=== PATIENT | female | born 1945 | race African-American/Black ===

== ENCOUNTER 2018-09-26 15:23 | Emergency (ER) | payer MEDICARE, MEDICAID ==
[~2018-09-26] VITALS: Ht 167.6 cm; Wt 95.0 kg
[2018-09-26] MEDS ORDERED: SODIUM CHLORIDE 0.9% 500 ML IV ONE (15:50)
[2018-09-26 16:38] LABS: BASOPHILS % 0.3 % (0.0-2.0); HEMATOCRIT. 31.1 % (36.0-48.0); HEMOGLOBIN. 10.6 g/dL (12.0-16.0); LYMPHOCYTES % 20.5 % (20.0-50.0); MEAN CORPUSCULAR HEMOGLOBIN 30.9 pg (28.0-32.0); MEAN CORPUSCULAR VOLUME 90.7 fL (81.0-99.0); MEAN PLATELET VOLUME 8.6 fl (7.4-10.4); NEUTROPHILS % 70.2 % (40.0-76.0); PLATELET 239 x1000/uL (130-400); RED BLOOD CELL COUNT 3.43 mill/uL (4.2-5.4); RED CELL DISTRIBUTION WIDTH 17.1 % (11.6-14.6)
[2018-09-26 16:39] LABS: CHLORIDE 90 mEq/L (98-107)
[2018-09-26 16:43] LABS: PARTIAL THROMBOPLASTIN TIME 27.4 sec (23.4-31.0); PROTHROMBIN TIME 10.3 sec (9.1-11.1)
[2018-09-26 16:45] LABS: ETHANOL BLOOD < 10 mg/dL
[2018-09-26 17:30] LABS: CLARITY URINE CLEAR (CLEAR); COLOR URINE YELLOW (YELLOW); KETONES URINE NEGATIVE (NEGATIVE); LEUKOCYTE ESTERASE URINE 1+ (NEGATIVE); NITRITE URINE NEGATIVE (NEGATIVE); OCCULT BLOOD URINE NEGATIVE (NEGATIVE); PH URINE 7.5 (4.5-8.0); PROTEIN URINE NEGATIVE (NEGATIVE); SPECIFIC GRAVITY URINE 1.004 (1.005-1.030); UROBILINOGEN URINE 0.2 E.U./dL (0.2-1.0)
[2018-09-26 18:00] LABS: *AMPHETAMINES SCREEN URINE NEGATIVE (NEGATIVE); *BARBITURATES SCREEN URINE NEGATIVE (NEGATIVE); *BENZODIAZEPINES SCREEN URINE NEGATIVE (NEGATIVE); *COCAINE SCREEN URINE NEGATIVE (NEGATIVE)
[2018-09-26 18:01] LABS: CANNABINOID URINE SCREEN NEGATIVE (NEGATIVE); METHADONE URINE SCREEN NEGATIVE (NEGATIVE); OPIATES URINE SCREEN NEGATIVE (NEGATIVE); PHENCYCLIDINE URINE SCREEN NEGATIVE (NEGATIVE)
[2018-09-26] MEDS ORDERED: NITROFURANTOIN 100MG M/M CAPSULE PO ONE (19:45)
[2018-09-26] MEDS ORDERED: POTASSIUM CHLORIDE 20MEQ TABLET SR PO ONE (20:15)
[2018-09-26 20:51] VITALS: BP 143/65
== END 2018-09-26 20:55 | disposition home or self-care (01) ==
LOC: ER 15:59
DX: N39.0 Urinary tract infection, site not specified (principal); E87.8 Other disorders of electrolyte and fluid balance, not elsewhere classified; F31.9 Bipolar disorder, unspecified; J44.9 Chronic obstructive pulmonary disease, unspecified; I10 Essential (primary) hypertension; E11.9 Type 2 diabetes mellitus without complications; R94.31 Abnormal electrocardiogram [ECG] [EKG]; M48.02 Spinal stenosis, cervical region; Z91.81 History of falling; Z88.0 Allergy status to penicillin; Z88.5 Allergy status to narcotic agent; Z88.2 Allergy status to sulfonamides
CPT/HCPCS: 36415; 70450; 71045; 72125; 72170; 80053; 80305; 81003; 82962; 83690; 83735; 83880; 84484; 85025; 85610; 85730; 87077; 87086; 87186; 93005; 99284; G0482; J7040

== ENCOUNTER 2018-09-29 01:46 | Inpatient (IN) | payer MEDICARE, MEDICAID ==
[~2018-09-29] VITALS: Ht 152.4 cm; Wt 90.1 kg
[2018-09-29] MEDS ORDERED: SODIUM CHLORIDE 0.9% 1,000 ML IV ONE (03:48)
[2018-09-29 05:10] LABS: BASOPHILS % 0.2 % (0.0-2.0); EOSINOPHILS % 1.5 % (0.0-5.0); HEMATOCRIT. 34.4 % (36.0-48.0); HEMOGLOBIN. 11.4 g/dL (12.0-16.0); LYMPHOCYTES % 11.8 % (20.0-50.0); MEAN CORPUSCULAR HEMOGLOBIN 30.3 pg (28.0-32.0); MEAN CORPUSCULAR VOLUME 91.7 fL (81.0-99.0); MEAN PLATELET VOLUME 8.5 fl (7.4-10.4); MONOCYTES % 7.3 % (2.0-8.0); NEUTROPHILS % 79.2 % (40.0-76.0); PLATELET 223 x1000/uL (130-400); RED BLOOD CELL COUNT 3.76 mill/uL (4.2-5.4); RED CELL DISTRIBUTION WIDTH 17.9 % (11.6-14.6)
[2018-09-29 05:18] LABS: CHLORIDE 95 mEq/L (98-107)
[2018-09-29 05:21] LABS: ETHANOL BLOOD < 10 mg/dL
[2018-09-29] MEDS ORDERED: CEFTRIAXONE 1 G PREMIX 50 ML IV ONE (05:45)
[2018-09-29] MEDS ORDERED: POTASSIUM CHLORIDE 20MEQ TABLET SR PO ONE (06:00)
[2018-09-29 07:23] LABS: CLARITY URINE CLOUDY (CLEAR); COLOR URINE YELLOW (YELLOW); KETONES URINE NEGATIVE (NEGATIVE); LEUKOCYTE ESTERASE URINE 3+ (NEGATIVE); NITRITE URINE NEGATIVE (NEGATIVE); OCCULT BLOOD URINE TRACE (NEGATIVE); PH URINE 7.5 (4.5-8.0); PROTEIN URINE NEGATIVE (NEGATIVE); SPECIFIC GRAVITY URINE 1.003 (1.005-1.030); UROBILINOGEN URINE 0.2 E.U./dL (0.2-1.0)
[2018-09-29 07:55] LABS: *AMPHETAMINES SCREEN URINE NEGATIVE (NEGATIVE); *BARBITURATES SCREEN URINE NEGATIVE (NEGATIVE); *BENZODIAZEPINES SCREEN URINE NEGATIVE (NEGATIVE); *COCAINE SCREEN URINE NEGATIVE (NEGATIVE); METHADONE URINE SCREEN NEGATIVE (NEGATIVE); OPIATES URINE SCREEN NEGATIVE (NEGATIVE)
[2018-09-29 07:56] LABS: CANNABINOID URINE SCREEN NEGATIVE (NEGATIVE); PHENCYCLIDINE URINE SCREEN NEGATIVE (NEGATIVE)
[2018-09-29 08:20] VITALS: BP 111/64
[2018-09-29] MEDS ORDERED: LORAZEPAM 2MG/ML CPJ IV PRN (08:30)
[2018-09-29] MEDS ORDERED: DOCUSATE SODIUM 100MG CAPSULE PO PRN (08:30)
[2018-09-29] MEDS ORDERED: MAGNESIUM/ALUMINUM HYDROXIDE/SIMETHICONE 30ML UDC PO PRN (08:30)
[2018-09-29] MEDS ORDERED: GUAIFENESIN 200MG/10ML SUGAR FREE UDC PO PRN (08:30)
[2018-09-29] MEDS ORDERED: ONDANSETRON HCL 4MG/2ML INJ IV PRN (08:30)
[2018-09-29] MEDS ORDERED: CLONIDINE 0.1MG TABLET PO PRN (08:30)
[2018-09-29] MEDS ORDERED: IPRATROPIUM/ALBUTEROL 0.5-3(2.5)MG/3ML NEB INH PRN (08:30)
[2018-09-29] MEDS: ASPIRIN 81MG EC TABLET PO SCH ×2 (09:00→09:23)
[2018-09-29] MEDS: ENOXAPARIN 40MG/0.4ML SYR SUBCUT SCH (09:24)
[2018-09-29] MEDS: TRAMADOL 50MG TABLET PO PRN (10:00)
[2018-09-29] MEDS ORDERED: LEVOFLOXACIN 500MG PREMIX 100 ML IV SCH (10:00)
[2018-09-29] MEDS: SODIUM CHLORIDE 0.45% 1,000 ML IV SCH ×2 (10:37→21:38)
[2018-09-29] MEDS ORDERED: KETOROLAC 15MG/ML VIAL IV NR (11:30)
[2018-09-29 12:48] VITALS: BP 149/75
[2018-09-29] MEDS: SODIUM CHLORIDE 0.9% INJ 3ML FLUSH IVF SCH ×2 (14:06→22:11)
[2018-09-29] MEDS: DIPHENHYDRAMINE 50MG/ML VIAL IV PRN ×2 (15:34→22:11)
[2018-09-29] MEDS ORDERED: DEXTROSE 50% WATER 50ML SYRINGE IV PRN (15:45)
[2018-09-29] MEDS: INSULIN LISPRO 100 UNITS/ML SUBCUT SCH ×2 (16:53→21:00)
[2018-09-29] MEDS: BLOOD SUGAR DIAGNOSTIC STRIP TEST SCH ×2 (16:53→21:37)
[2018-09-29 20:00] VITALS: BP 155/55
[2018-09-29 21:11] LABS: CREATINE KINASE 280 IU/L (26-192)
[2018-09-29 21:13] LABS: CREATINE KINASE MB FRACTION 2.6 ng/mL (0.5-3.6)
[2018-09-29] MEDS ORDERED: ARIP30TA10 PO (21:58)
[2018-09-29] MEDS ORDERED: TOPI200T15 PO (21:58)
[2018-09-29] MEDS ORDERED: CARB200C4 PO (21:58)
[2018-09-29] MEDS: HALOPERIDOL LACTATE 5MG/ML VIAL IM PRN (22:11)
[2018-09-30] VITALS (7 sets, daily range): BP systolic 126–173; BP diastolic 45–79
[2018-09-30] MEDS ORDERED: EZET10TA26 PO (04:30)
[2018-09-30] MEDS ORDERED: NITR100C PO (04:30)
[2018-09-30] MEDS ORDERED: FAMO-135 PO (04:30)
[2018-09-30] MEDS ORDERED: B50 PO (04:30)
[2018-09-30] MEDS ORDERED: LOSA50TA20 (04:30)
[2018-09-30] MEDS ORDERED: CLOP75TA16 PO (04:30)
[2018-09-30] MEDS ORDERED: POTA20TA82 PO (04:30)
[2018-09-30] MEDS ORDERED: FURO-151 PO (04:30)
[2018-09-30] MEDS ORDERED: CLON-457 PO (04:30)
[2018-09-30] MEDS ORDERED: IBUP-2028 PO (04:30)
[2018-09-30] MEDS ORDERED: LEVO50TA PO (04:30)
[2018-09-30] MEDS: SODIUM CHLORIDE 0.9% INJ 3ML FLUSH IVF SCH ×3 (06:00→21:12)
[2018-09-30] MEDS: INSULIN LISPRO 100 UNITS/ML SUBCUT SCH ×4 (06:38→21:12)
[2018-09-30] MEDS: BLOOD SUGAR DIAGNOSTIC STRIP TEST SCH ×4 (06:38→21:12)
[2018-09-30 07:57] LABS: BASOPHILS % 0.2 % (0.0-2.0); EOSINOPHILS % 0.9 % (0.0-5.0); HEMATOCRIT. 33.3 % (36.0-48.0); HEMOGLOBIN. 11.1 g/dL (12.0-16.0); LYMPHOCYTES % 23.9 % (20.0-50.0); MEAN CORPUSCULAR HEMOGLOBIN 30.4 pg (28.0-32.0); MEAN CORPUSCULAR VOLUME 91.7 fL (81.0-99.0); MEAN PLATELET VOLUME 8.5 fl (7.4-10.4); MONOCYTES % 8.4 % (2.0-8.0); NEUTROPHILS % 66.6 % (40.0-76.0); PLATELET 236 x1000/uL (130-400); RED BLOOD CELL COUNT 3.63 mill/uL (4.2-5.4)
[2018-09-30 08:49] LABS: CHLORIDE 101 mEq/L (98-107)
[2018-09-30] MEDS ORDERED: ARIPIPRAZOLE PO SCH (09:00)
[2018-09-30] MEDS ORDERED: MEDICATION NOT ON FORMULARY EA (Topiramate 1 TAB) PO SCH (09:00)
[2018-09-30] MEDS ORDERED: CARBAMAZEPINE PO SCH (09:00)
[2018-09-30 09:08] LABS: CREATINE KINASE 573 IU/L (26-192)
[2018-09-30 09:09] LABS: T4 FREE 1.14 ng/dL (0.76-1.46)
[2018-09-30 09:12] LABS: CREATINE KINASE MB FRACTION 6.3 ng/mL (0.5-3.6)
[2018-09-30] MEDS: CARBAMAZEPINE 200MG TABLET PO SCH ×2 (10:05→16:22)
[2018-09-30] MEDS: LEVOFLOXACIN 250MG PREMIX 50 ML IV SCH (10:06)
[2018-09-30] MEDS: ARIPIPRAZOLE 10MG TABLET PO SCH (10:06)
[2018-09-30] MEDS: TOPIRAMATE 100MG TABLET PO SCH ×2 (10:06→16:22)
[2018-09-30] MEDS: ASPIRIN 81MG EC TABLET PO SCH (10:06)
[2018-09-30] MEDS: ENOXAPARIN 40MG/0.4ML SYR SUBCUT SCH (10:17)
[2018-09-30] MEDS: SODIUM CHLORIDE 0.45% 1,000 ML IV SCH ×2 (13:04→21:08)
[2018-09-30] MEDS: TRAMADOL 50MG TABLET PO PRN (13:12)
[2018-09-30] MEDS: ENOXAPARIN 30MG/0.3ML SYR SUBCUT SCH (21:09)
[2018-10-01] VITALS: BP 128/77
[2018-10-01 04:00] VITALS: BP 133/80
[2018-10-01 06:23] LABS: BASOPHILS % 0.2 % (0.0-2.0); EOSINOPHILS % 1.7 % (0.0-5.0); HEMATOCRIT. 32.2 % (36.0-48.0); HEMOGLOBIN. 10.7 g/dL (12.0-16.0); LYMPHOCYTES % 21.8 % (20.0-50.0); MEAN CORPUSCULAR HEMOGLOBIN 30.8 pg (28.0-32.0); MEAN CORPUSCULAR VOLUME 92.3 fL (81.0-99.0); MEAN PLATELET VOLUME 8.5 fl (7.4-10.4); MONOCYTES % 8.6 % (2.0-8.0); NEUTROPHILS % 67.7 % (40.0-76.0); PLATELET 211 x1000/uL (130-400); RED BLOOD CELL COUNT 3.49 mill/uL (4.2-5.4); RED CELL DISTRIBUTION WIDTH 18.2 % (11.6-14.6)
[2018-10-01] MEDS: SODIUM CHLORIDE 0.9% INJ 3ML FLUSH IVF SCH ×3 (06:37→21:49)
[2018-10-01 06:41] LABS: CHLORIDE 103 mEq/L (98-107)
[2018-10-01] MEDS: SODIUM CHLORIDE 0.45% 1,000 ML IV SCH ×2 (06:45→16:45)
[2018-10-01] MEDS: BLOOD SUGAR DIAGNOSTIC STRIP TEST SCH ×4 (06:46→21:41)
[2018-10-01] MEDS: INSULIN LISPRO 100 UNITS/ML SUBCUT SCH ×4 (06:48→21:49)
[2018-10-01 06:52] LABS: CREATINE KINASE 253 IU/L (26-192)
[2018-10-01 06:53] LABS: CREATINE KINASE MB FRACTION 2.9 ng/mL (0.5-3.6)
[2018-10-01 08:00] VITALS: BP 124/43
[2018-10-01] MEDS: ARIPIPRAZOLE 10MG TABLET PO SCH (09:22)
[2018-10-01] MEDS: CARBAMAZEPINE 200MG TABLET PO SCH ×2 (09:22→17:31)
[2018-10-01] MEDS: TOPIRAMATE 100MG TABLET PO SCH ×2 (09:23→17:31)
[2018-10-01] MEDS: LEVOFLOXACIN 250MG PREMIX 50 ML IV SCH (09:23)
[2018-10-01] MEDS: ASPIRIN 81MG EC TABLET PO SCH (09:23)
[2018-10-01] MEDS: ENOXAPARIN 30MG/0.3ML SYR SUBCUT SCH ×2 (09:23→21:48)
[2018-10-01 12:00] VITALS: BP 127/67
[2018-10-01 16:50] VITALS: BP 173/83
[2018-10-01 20:00] VITALS: BP 156/54
[2018-10-01] MEDS: DIPHENHYDRAMINE 50MG/ML VIAL IV PRN (23:15)
[2018-10-01] MEDS: HALOPERIDOL LACTATE 5MG/ML VIAL IM PRN (23:15)
[2018-10-02] VITALS: BP 149/69
[2018-10-02] MEDS: SODIUM CHLORIDE 0.45% 1,000 ML IV SCH ×2 (02:45→11:33)
[2018-10-02 04:00] VITALS: BP 138/67
[2018-10-02] MEDS: INSULIN LISPRO 100 UNITS/ML SUBCUT SCH ×4 (06:02→21:04)
[2018-10-02] MEDS: BLOOD SUGAR DIAGNOSTIC STRIP TEST SCH ×4 (06:02→21:04)
[2018-10-02] MEDS: TRAMADOL 50MG TABLET PO PRN (06:03)
[2018-10-02] MEDS: SODIUM CHLORIDE 0.9% INJ 3ML FLUSH IVF SCH ×3 (06:03→22:00)
[2018-10-02 08:00] VITALS: BP 160/71
[2018-10-02] MEDS: CARBAMAZEPINE 200MG TABLET PO SCH ×2 (08:25→16:42)
[2018-10-02] MEDS: ARIPIPRAZOLE 10MG TABLET PO SCH (08:25)
[2018-10-02] MEDS: TOPIRAMATE 100MG TABLET PO SCH ×2 (08:26→16:42)
[2018-10-02] MEDS: LEVOFLOXACIN 250MG PREMIX 50 ML IV SCH (08:27)
[2018-10-02] MEDS: ASPIRIN 81MG EC TABLET PO SCH (08:27)
[2018-10-02] MEDS: ENOXAPARIN 30MG/0.3ML SYR SUBCUT SCH ×2 (08:28→21:03)
[2018-10-02] MEDS: ACETAMINOPHEN 325MG TABLET PO PRN ×2 (08:29→16:44)
[2018-10-02 12:19] VITALS: BP 142/78
[2018-10-02 16:00] VITALS: BP 146/83
[2018-10-02 20:00] VITALS: BP 147/55
[2018-10-03] VITALS: BP 155/52
[2018-10-03 04:00] VITALS: BP 196/71
[2018-10-03] MEDS: SODIUM CHLORIDE 0.9% INJ 3ML FLUSH IVF SCH ×2 (06:00→13:44)
[2018-10-03] MEDS: BLOOD SUGAR DIAGNOSTIC STRIP TEST SCH ×2 (06:17→11:47)
[2018-10-03] MEDS: INSULIN LISPRO 100 UNITS/ML SUBCUT SCH ×2 (06:25→11:47)
[2018-10-03 08:21] VITALS: BP 134/62
[2018-10-03] MEDS: ENOXAPARIN 30MG/0.3ML SYR SUBCUT SCH (08:52)
[2018-10-03] MEDS: ACETAMINOPHEN 325MG TABLET PO PRN (08:53)
[2018-10-03] MEDS: LEVOFLOXACIN 250MG PREMIX 50 ML IV SCH (08:54)
[2018-10-03] MEDS: ASPIRIN 81MG EC TABLET PO SCH (08:54)
[2018-10-03] MEDS: ARIPIPRAZOLE 10MG TABLET PO SCH (08:54)
[2018-10-03] MEDS: TOPIRAMATE 100MG TABLET PO SCH (08:54)
[2018-10-03] MEDS: CARBAMAZEPINE 200MG TABLET PO SCH (08:56)
[2018-10-03 10:00] VITALS: BP 134/62
[2018-10-03] MEDS ORDERED: CLONIDINE 0.1MG TABLET PO PRN (10:00)
[2018-10-03] MEDS ORDERED: AMLODIPINE 10MG TABLET PO SCH (11:00)
[2018-10-03 12:00] VITALS: BP_SYST 136; BP_SYST 137; BP_DIAS 72; BP_DIAS 75
== END 2018-10-03 15:15 | disposition home or self-care (01) | DRG 690 ==
LOC: ER 01:46 → 8WST 05:47 → EDBEDREQ 05:52 → ENRESERV 07:01
PROVIDERS: ADMIT Internal Medicine; ATTEND Internal Medicine
DX: N39.0 Urinary tract infection, site not specified (principal); E87.2 Acidosis; G93.40 Encephalopathy, unspecified; E11.9 Type 2 diabetes mellitus without complications; E66.9 Obesity, unspecified; F99 Mental disorder, not otherwise specified; E78.5 Hyperlipidemia, unspecified; E87.6 Hypokalemia; I10 Essential (primary) hypertension; Z88.0 Allergy status to penicillin; Z88.5 Allergy status to narcotic agent; Z88.2 Allergy status to sulfonamides; Z68.38 Body mass index [BMI] 38.0-38.9, adult; Z79.899 Other long term (current) drug therapy
CPT/HCPCS: 36415; 71045; 72170; 80048; 80305; 82550; 82553; 82962; 83036; 83605; 83735; 83880; 84145; 84439; 84443; 84484; 87077; 87186; 93005; 96360; 99284; 99285; C1893; G0482; J0696; J1200; J1630; J1650; J1815; J1885; J1956; J2060; J7030; J7040